=== PATIENT | female | born 1970 | race Caucasian/White ===

== ENCOUNTER 2020-02-11 01:14 | Outpatient (CLI) | payer BC, SELFPAY ==
[2020-02-11 19:18] LABS: SARS-CoV-2 RNA PCR Negative
== END 2020-02-11 01:15 | disposition home or self-care (01) ==
LOC: ANHCOVIDDT 01:14
PROVIDERS: Visit Provider Internal Medicine Gastroenterology
DX: Z01.812 Encounter for preprocedural laboratory examination (principal); Z20.828 Contact with and (suspected) exposure to other viral communicable diseases
CPT/HCPCS: 87635; C9803; U0003

== ENCOUNTER → 2021-03-16 04:18 | Outpatient (CLI) | payer BC, SELFPAY ==
[2021-03-16 18:26] LABS: SARS-CoV-2 RNA PCR Negative
== END ==
PROVIDERS: Visit Provider Internal Medicine Gastroenterology
DX: Z01.812 Encounter for preprocedural laboratory examination (principal); Z20.822 Contact with and (suspected) exposure to COVID-19
CPT/HCPCS: C9803; U0003; U0005

== ENCOUNTER 2021-03-19 00:36 | Day surgery (SDC) | payer BC, SELFPAY ==
[2021-03-08 10:18] VITALS: BMI 26.6
--- NOTE | 2021-03-16 13:35 | P.HP_ITS ---
History of Present Illness History of Present Illness Consent: Risks, benefits, and alternatives have been discussed and questions answered. Patient agrees to proceed with procedure. Chief complaint: neoplasm screening Narrative: Ana Garcia is a 50 year old female referred for colon cancer screening. 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
[2021-03-19 10:23] VITALS: BP 118/86; PULSE 100; RESP 16; TEMP 36.7; O2SAT 98
[2021-03-19] MEDS: LACTATED RINGERS 1,000 ML 150 ML IV CONT (10:32)
--- NOTE | 2021-03-19 10:34 | WPDANESEPPF ---
Anes - Initial Pre Proc Eval Procedure: Operation Date: 03/19/21 11:30 Proposed Procedures p Screening Colonoscopy - Arjun Olivia MD Date/Time: 03/19/21 10:34 Surgeon: Arjun Olivia MD Pre Op Diagnosis: neoplasm screening Patient Data Age: 50 Gender: F Height: 1.7 m Weight: 75.7 kg Last Vital Signs Temp 36.7 C 03/19/21 10:23 Pulse 100 03/19/21 10:23 Resp 16 03/19/21 10:23 BP 118/86 03/19/21 10:23 Pulse Ox 98 03/19/21 10:23 Allergies Allergy/AdvReac Type Severity Reaction Status Date / Time No Known Allergies Allergy Verified 03/08/21 10:17 Home Medications Medication Instructions Recorded Confirmed Type norgestimate-ethinyl estradiol 1 tablet PO DAILY 03/08/21 03/08/21 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 PMFSH Past Medical History Medical History (Updated 03/19/21 @ 10:35 by Herb Ennis MD) Overweight Surgical History Surgical History (Updated 03/19/21 @ 10:35 by Herb Ennis MD) [place] teeth extracted Social History Social History Smoking status: Never smoker Alcohol intake: current Alcohol use details: Monthly Living arrangements: with family Spiritual care concerns: No Anes - Eval Final PreProcedure Day of Procedure 03/19/21 10:34 Patient weight: overweight Heart: regular rate and rhythm Lungs: clear to auscultation Airway: Mallampati scale class II Neurological: alert and oriented Last oral intake: >/= 8 hours ASA classification: II Emergent: no Anesthetic plan: proceed Anesthesia type and monitoring: general GIVS and standard monitoring Results Review: All pre-operative results and documents have been reviewed as part of the pre-operative evaluation. Informed Consent: The patient's anesthetic plan and its attendant risks and benefits were discussed with the patient/family/POA. Questions were solicited and answers provided to the satisfaction of the patient/family/POA.
[2021-03-19 10:57] VITALS: BP 103/61; PULSE 85; RESP 23; O2SAT 99
[2021-03-19 11:08] VITALS: BP 136/91; PULSE 83; RESP 24; O2SAT 100
[2021-03-19 11:17] VITALS: BP 144/95; PULSE 76; RESP 20; O2SAT 98
== END 2021-03-19 11:30 | disposition home or self-care (01) ==
PROVIDERS: PCP Nurse Practitioner Family; Referring Provider Obstetrics & Gynecology Gynecology; Visit Provider Internal Medicine Gastroenterology
PROC: 0DJD8ZZ Inspection of Lower Intestinal Tract, Via Natural or Artificial Opening Endoscopic (ICD-10-PCS; CPT 45378; principal; 2021-03-19 11:30)
DX: Z12.11 Encounter for screening for malignant neoplasm of colon (principal)
CPT/HCPCS: 45378; J2704; J7120